=== PATIENT | female | born 1995 | race Hispanic/Latino ===

== ENCOUNTER 2022-02-10 09:41 | Observation (INO) | payer MEDICAID ==
[~2022-02-10] VITALS: Ht 167.6 cm; Wt 127.9 kg
[2022-02-10 09:44] VITALS: BP 177/103
[2022-02-10 10:11] LABS: APPEARANCE,URINE Clear (CLEAR); BILIRUBIN,URINE Negative (NEGATIVE); COLOR,URINE Yellow (YELLOW); GLUCOSE, URINE (UA) Negative (NEGATIVE); KETONES,URINE Negative (NEGATIVE); LEUKOCYTE ESTERASE ,URINE Small (NEGATIVE); NITRATE,URINE Negative (NEGATIVE); OCCULT BLOOD,URINE Negative (NEGATIVE); PH,URINE 7.5 (5.0-8.0); PROTEIN,URINE Negative (NEGATIVE); UROBILINOGEN,URINE 0.2 mg/dL (0.2-1.0)
[2022-02-10 10:41] LABS: AMPHET/METH SCREEN,URINE NEGATIVE (NEGATIVE); BARBITURATE SCREEN, URINE NEGATIVE (NEGATIVE); BENZODIAZEPINES SCREEN,URINE NEGATIVE (NEGATIVE); CANNABINOID SCREEN,URINE NEGATIVE (NEGATIVE); COCAINE SCREEN,URINE NEGATIVE (NEGATIVE); OPIATE SCREEN,URINE NEGATIVE (NEGATIVE); PHENCYCLIDINE SCREEN,URINE NEGATIVE (NEGATIVE)
[2022-02-10 10:58] LABS: BACTERIA,URINE Few /HPF (None Seen); RBC,URINE 0-1 /HPF (0-1); WBC,URINE 0-1 /HPF (0-1)
[2022-02-10] MEDS ORDERED: ACETAMINOPHEN 500 MG TABLET PO SCH (12:00)
== END 2022-02-10 12:20 | disposition home or self-care (01) ==
LOC: EDH 09:41 → LDH 09:42
PROVIDERS: ADMIT Internal Medicine; ATTEND Internal Medicine
DX: O26.892 Other specified pregnancy related conditions, second trimester (principal); R10.12 Left upper quadrant pain; O10.912 Unspecified pre-existing hypertension complicating pregnancy, second trimester; Z3A.27 27 weeks gestation of pregnancy
CPT/HCPCS: 80305; 81001; G0378 ×2; G0379

== ENCOUNTER 2022-09-22 22:14 | Emergency (ER) | payer MEDICAID ==
[~2022-09-22] VITALS: Ht 167.6 cm; Wt 137.9 kg
[2022-09-22 22:46] VITALS: BP 167/75
[2022-09-22] MEDS ORDERED: MECL-262 PO (22:54)
[2022-09-22] MEDS ORDERED: AMOX1TAB16 PO (22:54)
[2022-09-22] MEDS ORDERED: HYDRALAZINE 20MG/ML VIAL IV ONE (23:00)
[2022-09-22] MEDS ORDERED: MECLIZINE HCL 25 MG TABLET ONE (23:00)
[2022-09-22] MEDS ORDERED: MECLIZINE HCL 25 MG TABLET PO ONE (23:00)
[2022-09-22] MEDS ORDERED: AMOX/CLAV 875/125MG TAB PO ONE ×2 (23:00)
== END 2022-09-22 23:14 | disposition home or self-care (01) ==
LOC: EDH 22:14
DX: H66.93 Otitis media, unspecified, bilateral (principal); R42 Dizziness and giddiness

== ENCOUNTER 2024-12-08 09:59 | Emergency (ER) | payer SELFPAY ==
[~2024-12-08] VITALS: Ht 165.1 cm; Wt 113.4 kg
[~2024-12-08 09:59] MED LIST: AMOX1TAB16 PO; MECL-262 PO
--- NOTE | 2024-12-08 10:04 | ERN ---
ED Note History of Present Illness Stated Complaint: PELVIC PAIN Chief Complaint: Pelvic Pain Time Seen by MD: 10:00 Dictation: PATIENT IS A 29-YEAR-OLD FEMALE HERE WITH COMPLAINTS OF HAVING SUPRAPUBIC PAIN FOR 3-4 DAYS AND FEELS LIKE IT IS GOING TO POP. SHE DENIES FEVER CHILLS NAUSEA VOMITING. NO FLANK PAIN. SHE STATES SHE IS SEXUALLY ACTIVE, NOT USING CONTROL. SHE HAS TAKEN NOTHING PRIOR TO ARRIVAL FOR THE DISCOMFORT, NO PRIMARY CARE DOCTOR. Allergies: Coded Allergies: No Known Allergies (Unverified Allergy, Unknown, 02/10/22) Home Meds Active Scripts Meclizine HCl (Antivert) 25 Mg Tab.chew, 25 MG PO TIDP PRN for VERTIGO, #30 TAB.CHEW Prov:JAMES NEGRO MD 09/22/22 Amoxicillin/Potassium Clav (Amox Tr-K Clv 875-125 mg Tab) 1 Each Tablet, 1 EACH PO BID, #20 TAB Prov:JAMES NEGRO MD 09/22/22 Past Medical History Past Medical History: No Pertinent History Surgical History: None Family History: Negative Social History: Negative, Lives with family : 1 RN Note Reviewed/Agreed w/PFSH: Yes Review of System Dictation SUPRAPUBIC PAIN CONSTITUTIONAL: NEGATIVE EXCEPT FOR HPI HEAD/FACE: NEGATIVE EXCEPT FOR HPI EENT: NEGATIVE EXCEPT FOR HPI RESPIRATORY: NEGATIVE EXCEPT FOR HPI GASTROINTESTINAL/ABDOMINAL: NEGATIVE EXCEPT FOR HPI GENITOURINARY: NEGATIVE EXCEPT FOR HPI SUPRAPUBIC PAIN MUSCULOSKELETAL: NEGATIVE EXCEPT FOR HPI INTEGUMENTARY: NEGATIVE EXCEPT FOR HPI NEUROLOGICAL/PSYCH: NEGATIVE EXCEPT FOR HPI HEMATOLOGIC/LYMPHATIC: NEGATIVE EXCEPT FOR HPI ALL SYSTEMS NEGATIVE, EXCEPT NOTED ABOVE. 13 POINT REVIEW OF SYSTEMS ASSESSED AND ALL NEGATIVE EXCEPT FOR ABOVE. Initial Vital Sign VS Vital Signs Date Time Temp Pulse Resp B/P (MAP) Pulse Ox O2 Delivery O2 Flow Rate FiO2 12/08/24 10:00 98.1 90 18 184/102 99 Room Air 12/08/24 11:54 0 21 Physical Exam Dictation VITAL SIGNS REVIEWED GENERAL APPEARANCE: ALERT, ORIENTED X 3, NO ACUTE DISTRESS, WELL DEVELOPED, NOURISHED. HEAD AND FACE: NON-TRAUMATIC. EYES: PERRL, PINK CONJUNCTIVAS, EYELID NO TRAUMA, ANTERIOR CHAMBER WITH ARCUS SENILIS. EARS: PINNAS INTACT AND NO SIGNS OF TRAUMA OR ERYTHEMA EAR CANALS CLEAR AND NO DISCHARGE TM NO ERYTHEMA NOSE: NO DISCHARGE, NO BLEEDING. OROPHARYNX: MOUTH NORMAL, TONGUE PINK, PHARYNX CLEAR,NO ERYTHEMA, TONSILS NO EXUDATES, NO ABSCESSES NOTED, MUCOUS MEMBRANE MOIST NECK: SUPPLE, NON-TENDER, NO THYROMEGALY, NO MASSES, NO JVD, NO BRUITS BREAST:DEFERRED CHEST:NO TENDERNESS, NO CREPITUS, NO PARADOXICAL MOVEMENT, NO RETRACTIONS LUNGS:CLEAR, WELL-VENTILATED, SYMMETRIC, NO RALES, NO WHEEZING, NO RHONCHI, NO STRIDOR, GOOD BREATH SOUNDS BILATERALLY HEART: REGULAR RATE, REGULAR RHYTHM, NO MURMUR, NO GALLOPS VASCULAR: NO PERIPHERAL EDEMA, ABDOMEN: SOFT, POSITIVE BOWEL SOUNDS, NONDISTENDED, NO GUARDING, NONTENDER, NO REBOUND, NO MASSES NO HEPATOMEGALY, NO SPLENOMEGALY, NO ARAIZA'S SIGN, NO HERNIAS. RECTAL: DEFERRED GENITAL: DEFERRED NEUROLOGICAL: NORMAL SPEECH, MOTOR FUNCTION INTACT, SENSORY FUNCTION INTACT MUSCULOSKELETAL: NECK NONTENDER, FULL RANGE OF MOTION, BACK NONTENDER, FULL RANGE OF MOTION, EXTREMITIES: NONTENDER, FULL RANGE OF MOTION SKIN: COLOR PINK, DRY, NO TURGOR, NO RASH, NO LACERATIONS, NO ABRASIONS, NO CONTUSIONS. LYMPHATIC: DEFERRED Results (Laboratory/Radiology) Laboratory/Radiology Laboratory Tests Test 12/08/24 10:27 12/08/24 11:54 White Blood Count 11.1 K/uL (4.8-10.8) H Red Blood Count 4.82 MIL/uL (4.00-5.50) Hemoglobin 12.5 g/dL (12.0-16.0) Hematocrit 39.0 % (36-48) Mean Corpuscular Volume 80.9 fL (79-99) Mean Corpuscular Hemoglobin 25.9 pg (27.0-33.0) L Mean Corpuscular Hemoglobin Concent 32.1 g/dL (32.0-36.0) Red Cell Distribution Width 14.0 % (11.0-15.5) Platelet Count 341 K/uL (130-400) Mean Platelet Volume 9.2 fL (7.5-10.5) Immature Granulocyte % (Auto) 0.6 % (0-1) Neutrophils (%) (Auto) 72.7 % (40.0-77.0) Lymphocytes (%) (Auto) 20.8 % (21.0-51.0) L Monocytes (%) (Auto) 3.4 % (3.0-13.0) Eosinophils (%) (Auto) 2.1 % (0.0-8.0) Basophils (%) (Auto) 0.4 % (0.0-5.0) Neutrophils # (Auto) 8.1 K/uL (1.8-7.7) H Lymphocytes # (Auto) 2.3 K/uL (1.0-4.8) Monocytes # (Auto) 0.4 K/uL (0.1-1.0) Eosinophils # (Auto) 0.23 K/uL (0.00-0.70) Basophils # (Auto) 0.04 K/uL (0.00-0.20) Absolute Immature Granulocyte (auto 0.07 K/uL (0-1) Nucleated Red Blood Cells 0.0 % (0.0-0.19) Sodium Level 137 mmol/L (136-145) Potassium Level 4.2 mmol/L (3.5-5.1) Chloride Level 103 mmol/L (101-111) Carbon Dioxide Level 27 mmol/L (21-32) Blood Urea Nitrogen 10 mg/dL (7-18) Creatinine 0.6 mg/dL (0.5-1.0) Glomerular Filtration Rate Calc 125 mL/min (>90) Random Glucose 90 mg/dL (70-105) Total Calcium 8.7 mg/dL (8.5-10.1) Urine Color COLORLESS (YELLOW) Urine Appearance CLEAR (CLEAR) Urine pH 7.0 (5.0-8.0) Urine Specific [place] 1.013 (1.001-1.031) Urine Protein NEGATIVE mg/dL (NEGATIVE) Urine Glucose (UA) NEGATIVE mg/dL (NEGATIVE) Urine Ketones NEGATIVE mg/dL (NEGATIVE) Urine Occult Blood NEGATIVE (NEGATIVE) Urine Nitrate NEGATIVE (NEGATIVE) Urine Bilirubin NEGATIVE mg/dL (NEGATIVE) Urine Urobilinogen 0.2 mg/dL (0.2-1.0) Urine Leukocyte Esterase NEGATIVE Luke/uL Urine HCG, Qualitative POSITIVE (NEGATIVE) H OB ULTRASOUND DEMONSTRATES NO IUP AT THIS TIME. Labs Reviewed?: Yes ED Course ED Course Orders Procedure Category Date Status Time Cbc With Differential LAB 12/08/24 Complete 10:02 ,Urine Test LAB 12/08/24 Complete 10:02 Urinalysis Profile LAB 12/08/24 Complete 10:02 Basic Metabolic Panel LAB 12/08/24 Complete 10:02 Acetaminophen 500mg PHA 12/08/24 Complete Tab (Tylenol 500mg T 10:30 Us Ob <14 Weeks US 12/08/24 Taken 12:47 Current Medications Medications (Trade) Dose Ordered Sig/Micah Route PRN Reason Start Time Stop Time Status Last Admin Dose Admin Acetaminophen (TYLenol 500MG TAB) 1,000 mg ONCE ONCE PO 12/08/24 10:30 12/08/24 10:31 DC 12/08/24 11:54 Vital Signs Date Time Temp Pulse Resp B/P (MAP) Pulse Ox O2 Delivery O2 Flow Rate FiO2 12/08/24 11:54 98.2 87 16 180/96 98 Room Air* 0 21 12/08/24 10:00 98.1 90 18 184/102 99 Room Air 1408/WORKUP IS ESSENTIALLY NEGATIVE PATIENT HAS A HISTORY OF HYPERTENSION AND WE WILL BE TREATED WITH ENALAPRIL. SHE WILL BE DISCHARGED HOME TO FOLLOW UP WITH HER INTERNET PROJECT MANAGER DOCTOR IN THE NEXT SEVERAL DAYS. Medical Decision Making MDM MEDICAL DISCHARGE MAKING BASED ON BASIC LABS FOR THE [place] [facility] [id number] NO INFECTION FOUND POSITIVE URINE TEST WITH NO IUP ON ULTRASOUND DISCHARGED HOME WITH ENALAPRIL DUE TO HYPERTENSION AND TOLD TO SEE HER INTERNET PROJECT MANAGER DOCTOR DX & DISP Disposition: Discharge Departure Impression: Primary Impression: Additional Impression: Benign hypertension Condition: Stable Scripts Labetalol HCl (Labetalol HCl) 100 Mg Tablet 0.5 TAB PO BID for 30 Days, #60 TAB 0 Refills Prov: TRUMAN VERAS CUSTOMER QUALITY ENGINEER 12/08/24 Additional Instructions: FOLLOW-UP WITH PRIMARY CARE PROVIDER IN 1 TO 2 DAYS. TAKE MEDICATIONS DIRECTED HERE IN THE EMERGENCY ROOM. OKAY TO CONTINUE HOME MEDICATIONS UNLESS OTHERWISE DISCUSSED DURING YOUR VISIT IN THE EMERGENCY ROOM TODAY. RETURN TO YOUR NEAREST EMERGENCY ROOM IF SYMPTOMS WORSEN OR IF THERE IS NO IMPROVEMENT. CALL 911 IF YOU NEED IMMEDIATE ASSISTANCE. TAKE TYLENOL [id number] NEEDED AND IF NO CONTRAINDICATIONS ARE PRESENT. INCREASE ORAL HYDRATION. A WOUND CULTURE OR URINE CULTURE WAS ORDERED HERE IN THE EMERGENCY ROOM DEPARTMENT PLEASE FOLLOW-UP WITH PRIMARY CARE PROVIDER AND ADVISE THEM TO GET REPEAT PORTS FROM OUR FACILITY. IF YOU HAD ANY ZEN WRAP/SPLINTS THAT WERE APPLIED HERE, PLEASE DO NOT REMOVE THEM UNTIL YOU SEE YOUR PRIMARY CARE OR SPECIALTY. BEGIN VITAMINS [id number] DAILY WITH FOOD. TAKE TYLENOL ONLY FOR PAIN, NO ALCOHOL NO TOBACCO NO [id number] MEDICATIONS EXCEPT TYLENOL UNTIL CLEARED BY YOUR INTERNET PROJECT MANAGER DOCTOR. TAKE LABETALOL DIRECTED TWICE A DAY FOR YOUR BLOOD PRESSURE. Referrals: TOBIAS BALLARD MD (PCP) Time of Disposition: 14:10 I have reviewed the case, and I agree with, Diagnosis and Plan TRUMAN VERAS NP Dec 08, 2024 10:04
[2024-12-08 10:40] LABS: BASOPHILS # (AUTO) 0.04 K/uL (0.00-0.20); BASOPHILS % (AUTO) 0.4 % (0.0-5.0); EOSINOPHILS # (AUTO) 0.23 K/uL (0.00-0.70); EOSINOPHILS % (AUTO) 2.1 % (0.0-8.0); IMMATURE GRANULOCYTE ABSOLUTE 0.07 K/uL (0-1); LYMPHOCYTES # (AUTO) 2.3 K/uL (1.0-4.8); LYMPHOCYTES % (AUTO) 20.8 % (21.0-51.0); MEAN CORPUSCULAR HEMOGLOBIN 25.9 pg (27.0-33.0); MEAN CORPUSCULAR HGB CONC 32.1 g/dL (32.0-36.0); MEAN CORPUSCULAR VOLUME 80.9 fL (79-99); MONOCYTES # (AUTO) 0.4 K/uL (0.1-1.0); MONOCYTES % (AUTO) 3.4 % (3.0-13.0); NEUTROPHILS # (AUTO) 8.1 K/uL (1.8-7.7); NEUTROPHILS % (AUTO) 72.7 % (40.0-77.0); PLATELET COUNT (AUTO) 341 K/uL (130-400); RED BLOOD CELL COUNT(AUTO) 4.82 MIL/uL (4.00-5.50); WHITE BLOOD COUNT (AUTO) 11.1 K/uL (4.8-10.8)
[2024-12-08 10:50] LABS: CREATININE 0.6 mg/dL (0.5-1.0); POTASSIUM 4.2 mmol/L (3.5-5.1)
[2024-12-08] MEDS: acetaMINOPHEN 500 MG TABLET PO ONE (11:54)
[2024-12-08 12:40] LABS: APPEARANCE,URINE CLEAR (CLEAR); BILIRUBIN,URINE NEGATIVE (NEGATIVE); COLOR,URINE COLORLESS (YELLOW); GLUCOSE, URINE (UA) NEGATIVE (NEGATIVE); HCG,QUALITATIVE URINE POSITIVE (NEGATIVE); KETONES,URINE NEGATIVE (NEGATIVE); LEUKOCYTE ESTERASE ,URINE NEGATIVE Leu/uL (NEGATIVE); NITRATE,URINE NEGATIVE (NEGATIVE); OCCULT BLOOD,URINE NEGATIVE (NEGATIVE); PROTEIN,URINE NEGATIVE (NEGATIVE); UROBILINOGEN,URINE 0.2 mg/dL (0.2-1.0)
[2024-12-08 12:48] LABS: ADD UA MICROSCOPIC NO
[2024-12-08] MEDS ORDERED: LABE100T7 PO (14:12)
--- NOTE | 2024-12-08 14:18 | HMCIMG ---
Exam Type: US OB <14 WEEKS Clinical Information: SUPRAPUBIC PAIN, APPROXIMATELY 4-5 WEEKS Comparison: None Findings: The examination shows an anteverted uterus which is normal in size and echogenicity. It measures 8.5 x 4.9 x 7.4 cm. The endometrial lining is normal in thickness. It measures 15 mm. No intrauterine or ectopic seen. The ovaries are normal in size and echogenicity. The right ovary measures 3.2 x 2.8 x 2.5 cm. The left ovary measures 3.6 x 2.2 x 2.2 cm. Vascular Doppler flow exam and spectral analysis of waveforms analysis is unremarkable bilaterally. There is preserved vascularity to both ovaries on Doppler evaluation. Specifically, there is no evidence of ovarian torsion. No free fluid is noted throughout the cul-de-sac. There are no adnexal abnormalities. No other significant abnormalities are seen. No fluid collections or masses or free fluid are identified in the pelvis. Impression: NORMAL EXAM. No evidence of uterine pathology. No evidence of adnexal abnormalities or ovarian torsion. No intrauterine or ectopic seen.
[2024-12-08 14:38] VITALS: BP 175/85; PULSE 85; RESP 16; TEMP 98.3; O2SAT 98
--- NOTE | 2024-12-08 14:44 | NUR ---
UNABLE TO DEPART DUE TO REG PROCESS
== END 2024-12-08 14:42 | disposition home or self-care (01) ==
LOC: EDH 09:59
DX: O16.1 Unspecified maternal hypertension, first trimester (principal); Z3A.01 Less than 8 weeks gestation of pregnancy
CPT/HCPCS: 36415; 76801; 80048; 81003; 81025; 85025; 99284